=== PATIENT | female | born 1980 | race African-American/Black ===

== ENCOUNTER 2022-05-06 05:28 | Emergency (ER) | payer SELFPAY ==
[~2022-05-06] VITALS: Ht 160 cm; Wt 70.8 kg
[2022-05-06 05:38] VITALS: BP_SYST 137; BP_SYST 139; BP_DIAS 78; BP_DIAS 79
[2022-05-06] MEDS ORDERED: TYLENOL PO STA (05:40)
[2022-05-06] MEDS ORDERED: TYLENOL PO ONE (05:40)
--- NOTE | 2022-05-06 05:50 | ER.PDOC ---
General Chief Complaint: Fever Stated Complaint: FEVER,COUGH,HEADACHE,SORE THROAT,NAUSEA,BODY ACHES Time seen by MD: 05:47 Source: patient Exam Limitations: no limitations History of Present Illness Initial Comments Fever, cough, headache, sore throat and body aches for 3 days. Timing/Duration: gradual Severity: moderate Associated Symptoms: fever/chills, sore throat, cough, headache Constitutional: see HPI EENTM: no symptoms reported Respiratory: see HPI Cardiovascular: no symptoms reported Gastrointestinal: no symptoms reported All Other Systems: Reviewed and Negative Past Medical History Medical History: hypertension Surgical History: no surgical history Family History Significant Family History: no pertinent family hx Social History Smoking: non-smoker Alcohol Use: occassionally Drug Use: none Physical Exam General Appearance: alert, no distress Eye: eyes nml inspection Nose: nose nml Throat: pharynx nml, airway nml Neck: nml inspection, supple Respiratory: no resp.distress, breath sounds nml Abdomen: non-tender, no organomegaly CVS: reg rate & rhythm, heart sounds nml Skin: color nml, no rash, warm/dry Extremities: non-tender, nml ROM, no pedal edema NEURO/PSYCH: oriented x 3, CN's nml as tested, motor nml, sensation nml, moo d/affect nml Results/Orders Results/Orders Orders - NISHA TAPIA MD Covid19 Antigen Kelli Eliza (05/06/22 05:32) Influenza A&B (05/06/22 05:32) Strep Screen (05/06/22 05:32) Acetaminophen (Tylenol) (05/06/22 05:40) Vital Signs Date Time Temp Pulse Resp B/P (MAP) Pulse Ox O2 Delivery O2 Flow Rate FiO2 05/06/22 05:38 103.0 102 18 139/78 (98) 92 Room Air* 0 21 05/06/22 05:38 103.0 102 18 92 Administered Medications Medications (Trade) Dose Ordered Sig/Lauren Route PRN Reason Start Time Stop Time Status Last Admin Dose Admin Acetaminophen (Tylenol) 1,000 mg STAT STAT PO 05/06/22 05:40 05/06/22 05:41 DC 05/06/22 05:42 1,000 MG Progress Progress Patient received a gram of Tylenol ER DEPART Departure Time of Disposition: 05:49 Disposition: 01 HOME / SELF CARE / HOMELESS Impression: Primary Impression: Influenza A Condition: Improved Referrals: GEORGE RICCI PA-C (PCP) PRIMARY CARE PROVIDER Additional Instructions: Tamiflu Tylenol Mucinex DM [id number] as directed Follow-up with your PCP in 1 week Return to ED if worsening symptoms or concerns Duration or Time Spent with Pa: 10 min NISHA TAPIA MD May 06, 2022 05:50
== END 2022-05-06 06:11 | disposition home or self-care (01) ==
LOC: ER 05:28
DX: J10.1 Influenza due to other identified influenza virus with other respiratory manifestations (principal); I10 Essential (primary) hypertension; Z20.822 Contact with and (suspected) exposure to COVID-19
CPT/HCPCS: 99283; 87426; 87070; 87880; 87804 ×2; A9150

== ENCOUNTER → 2023-12-17 | Outpatient (CLI) | payer BC | END | disposition home or self-care (01) | LOC: RAD 14:30 | PROVIDERS: ATTEND Nurse Practitioner | DX: M25.512 Pain in left shoulder (principal) | CPT/HCPCS: 73030-LT ==

== ENCOUNTER → 2024-10-08 | Outpatient (CLI) | payer BC | END | disposition home or self-care (01) | LOC: RAD 15:10 | PROVIDERS: ATTEND Orthopaedic Surgery | DX: M25.512 Pain in left shoulder (principal) | CPT/HCPCS: 72040; 73030-LT ==